=== PATIENT | female | born 1955 | race Caucasian/White ===

== ENCOUNTER 2024-01-20 10:23 | Emergency (ER) | payer OTHER, SELFPAY ==
[2024-01-20 10:33] VITALS: BP 134/87
[2024-01-20 11:02] VITALS: BMI 35.4
[2024-01-20] MEDS: DILAUDID 0.5 MG IV (11:21)
[2024-01-20 11:48] LABS: ALT (SGPT) 25 U/L (0-35); AST (SGOT) 23 U/L (14-36); Albumin 3.3 g/dl (3.5-5.0); Alkaline Phosphatase 74 U/L (38-126); Blood Urea Nitrogen 18 mg/dl (7-17); Calcium 8.4 mg/dl (8.4-10.2); Carbon Dioxide 24 mmol/L (22-30); Chloride 109 mmol/L (98-107); Estimated Creatinine Clearance 102 ml/min; Glucose 90 mg/dl (70-99); Potassium 3.3 mmol/L (3.5-5.1); Sodium 135 mmol/L (135-145); Total Bilirubin 0.5 mg/dl (0.2-1.3); Total Protein 5.7 g/dl (6.3-8.2); eGFR > 60.00
[2024-01-20 11:55] LABS: % Basophils 0.3 % (0-2); % Eosinophils 0.8 % (0-6); % Immature Granulocytes 0.6 % (0-0.5); % Lymphocytes 25.6 % (20.5-51.1); % Monocytes 6.7 % (1.7-9.3); Absolute Basophils 0.1 10^3/uL (0-0.2); Absolute Eosinophils 0.2 10^3/uL (0-0.7); Absolute Immature Granulocytes 0.2 10^3/uL (0-0.05); Absolute Lymphocytes 5.9 10^3/uL (1.2-3.4); Absolute Monocytes 1.6 10^3/uL (0.1-0.6); Absolute Neutrophils 15.2 10^3/uL (1.4-6.5); Hematocrit 38.4 % (37.0-47.0); Hemoglobin 13.2 g/dL (12.0-16.0); Mean Corp Hgb Conc. 34.4 g/dL (33.0-37.0); Mean Corpuscular Hgb 30.1 pg (27.0-31.0); Mean Corpuscular Volume 87.5 fL (81.0-99.0); Mean Platelet Volume 8.9 fL (7.4-10.4); Nucleated Red Blood Cells % 0 %; Platelet Count 337 10^3/uL (130-400); Red Blood Cell Count 4.39 10^6/uL (4.20-5.40); Red Cell Dist. Width 15.1 % (11.5-14.5); White Blood Cell Count 23.1 10^3/uL (4.8-10.8)
[2024-01-20 14:03] VITALS: BP 154/75
--- NOTE | 2024-01-20 14:22 | ED.GENMED ---
History of Present Illness
General
Chief Complaint: Abdominal Symptoms
Source: patient
Time Seen by Provider: 01/20/24 11:06
Travel History
Have you had any contact with someone who has COVID-19?: No
Do you have any symptoms of coronavirus? Fever > 100 degrees, chills, cough, shortness of breath, sore throat, loss of taste or smell, muscle aches, or headache?: Yes
Symptoms:: cough
History of Present Illness
History of Present Illness:
69-year-old female presents complaining of sudden onset right-sided abdominal pain. She has been coughing for 2 weeks. Today she coughed while standing in the bathroom and developed sharp sudden pain to the right abdomen. She also notes swelling.
She is not anticoagulated. No other complaints at this time
Past History
Past History
ED Past Medical History: HTN, Hypercholesterolemia and Other (Sciatic back pain)
ED Past Surgical History: Gynecological
Social History
Tobacco: Smoker
Alcohol: Occasional
Drug: None
Personal:
Living: with family
Employment: Employed
Phy Exam
Physical Exam
Physical Exam:
General: Well-appearing female no acute respiratory distress
HEENT: Normocephalic atraumatic
Heart: Regular rate and rhythm no murmurs
Lungs: Clear no wheeze or Rales
Abdomen firm tender guarding noted to the right upper and lower abdomen. Left side of the abdomen is soft. There is swelling noted to the right abdomen. No ecchymosis hourly
Extremities: No
Course
Orders/Labs/Results
Orders:
Orders
01/20/24 10:39
Chest [CR Chest - 2 Views ] Urgent
Comment:
Reason For Exam: cough, pain right lower abd after coughing fit
01/20/24 11:16
CT Abd/pelvis W Iv Cont Urgent
Comment:
Reason For Exam: RUQ pain after coughing
HYDROmorphone [Dilaudid] 0.5 mg IV NOW STA
01/20/24 11:32
Complete Blood Count/With Diff Urgent
Comprehensive Metabolic Panel Urgent
Abnormal Lab Results
01/20/24
11:32
WBC 23.1 H 10^3/uL
(4.8-10.8)
RDW 15.1 H %
(11.5-14.5)
Abs Immat Gran (auto) 0.2 H 10^3/uL
(0-0.05)
Absolute Neuts (auto) 15.2 H 10^3/uL
(1.4-6.5)
Absolute Lymphs (auto) 5.9 H 10^3/uL
(1.2-3.4)
Absolute Monos (auto) 1.6 H 10^3/uL
(0.1-0.6)
Immature Gran % 0.6 H %
(0-0.5)
Potassium 3.3 L mmol/L
(3.5-5.1)
Chloride 109 H mmol/L
(98-107)
BUN 18 H mg/dl
(7-17)
Total Protein 5.7 L g/dl
(6.3-8.2)
Albumin 3.3 L g/dl
(3.5-5.0)
01/20/24 11:32
01/20/24 11:32
Vital Signs
Initial and Last Documented VS:
Initial Vital Signs
Temp Pulse Resp BP Pulse Ox
99.3 F 87 20 134/87 97
01/20/24 10:33 01/20/24 10:33 01/20/24 10:33 01/20/24 10:33 01/20/24 10:33
Last Documented Vital Signs
Temp Pulse Resp BP Pulse Ox
99.3 F 65 18 154/75 98
01/20/24 10:33 01/20/24 14:03 01/20/24 14:03 01/20/24 14:03 01/20/24 14:03
MDM/Problems Addressed
Differential Diagnosis Includes:
Right abdominal pain started suddenly after coughing. Exam concerning secondary rigidness and swelling. Question possible hematoma versus hernia perforation.
Will check labs and CT
*Critical Care Note
Total Time (30-74mins, 75-104mins- exclusive of procedures): Not Applicable
Update Note
Update Note:
CT of abdomen reviewed and demonstrates hematoma within the rectus abdominal muscle on the right side. Hemoglobin is stable vital signs are stable white blood cell count is 23,000 likely reactive to the pain. Patient reexamined is looking more
comfortable. No indication for any further intervention. Recommended ice and pain control. Stable for discharge
ED Attending Note
-
Portions of this chart may have been created with voice recognition software.� Occasional wrong word or��sound alike� substitutions may have occurred due to the inherent limitations of voice recognition software.
Discharge Plan
Departure
Patient Disposition: Home (Routine Discharge)
Date of Disposition: 01/20/24
Time of Disposition: 14:28
Patient with high blood pressure during this ER visit?: No
Discharge Problem:
Rectus sheath hematoma
Instructions: Muscle and Bone Pain (DC)
Prescriptions:
New
hydrocodone-acetaminophen 5-325 mg tablet
1 tab PO Q8H PRN (Reason: Pain) Qty: 10 0RF
No Action
atorvastatin 40 MG tablet
40 mg PO DAILY
lisinopril 10 MG tablet
10 mg PO DAILY
alprazolam 0.25 MG tablet
0.25 mg PO Q8HPRN PRN (Reason: anxiety)
metronidazole 500 MG tablet
500 mg PO TID Qty: 29 0RF
levofloxacin 500 MG tablet
500 mg PO DAILY Qty: 9 0RF
Referrals:
Tom Willard MD [Family Provider] -
Activity Restrictions/Additional Instructions:
Continue with ice. Use pain medicine as needed for severe pain. Return if needed. Avoid heavy lifting or twisting. Follow up with family doctor.
Interventions
Interventions:
*Risk Screen - Suicide Last Done: 01/20/24 11:03
*General Assessment Last Done: 01/20/24 11:04
*Neglect/Abuse Screening Last Done: 01/20/24 11:03
ED- Fall Risk Assessment Last Done: 01/20/24 11:03
*ED COVID-19 Vaccine History Last Done: 01/20/24 11:03
LM-Vabusa-Xspveaalgq Assessment Last Done: 01/20/24 11:06
Discharge Date and Time
Print Language: MOSOTHO
== END 2024-01-20 15:28 | disposition home or self-care (01) ==
LOC: EMR 10:23
PROVIDERS: Physician Assistant; EMERGENCY PHYSICIAN Emergency Medicine; FAMILY PHYSICIAN Family Medicine
DX: S30.1XXA Contusion of abdominal wall, initial encounter (principal); X58.XXXA Exposure to other specified factors, initial encounter; I10 Essential (primary) hypertension; E78.00 Pure hypercholesterolemia, unspecified; F17.200 Nicotine dependence, unspecified, uncomplicated
CPT/HCPCS: 99284; 96374; 71046; 74177; 80053; 85025; Q9967

== ENCOUNTER 2024-07-28 21:57 | Emergency (ER) | payer OTHER, SELFPAY ==
[2024-07-28 21:58] VITALS: BP 173/91
--- NOTE | 2024-07-28 23:31 | EDRN ---
specialist for the chronic neck pain that flares. Pt states that she has had a Medrol dose pack. Pt states that today she has had bilateral arm weakness. Pt has nausea with any movement. Pt is to start physical therapy this week. Pt states that
tonight the nausea and the dizziness has increased. Pt has taken Advil and Tylenol with no relief.
[2024-07-28 23:36] VITALS: BMI 32.5
[2024-07-29 00:01] LABS: % Basophils 0.5 % (0-2); % Eosinophils 0.8 % (0-6); % Immature Granulocytes 0.5 % (0-0.5); % Lymphocytes 18.4 % (20.5-51.1); % Monocytes 6.5 % (1.7-9.3); % Neutrophils 73.3 % (42.2-75.2); Absolute Basophils 0.1 10^3/uL (0-0.2); Absolute Eosinophils 0.2 10^3/uL (0-0.7); Absolute Immature Granulocytes 0.1 10^3/uL (0-0.05); Absolute Lymphocytes 3.5 10^3/uL (1.2-3.4); Absolute Monocytes 1.2 10^3/uL (0.1-0.6); Hematocrit 41.8 % (37.0-47.0); Hemoglobin 14.6 g/dL (12.0-16.0); Mean Corp Hgb Conc. 34.9 g/dL (33.0-37.0); Mean Corpuscular Hgb 30.5 pg (27.0-31.0); Mean Corpuscular Volume 87.4 fL (81.0-99.0); Mean Platelet Volume 9.3 fL (7.4-10.4); Nucleated Red Blood Cells % 0 %; Platelet Count 288 10^3/uL (130-400); Red Blood Cell Count 4.78 10^6/uL (4.20-5.40); Red Cell Dist. Width 14.6 % (11.5-14.5); White Blood Cell Count 19.1 10^3/uL (4.8-10.8)
[2024-07-29] MEDS: NSS 1000 IV (00:05)
[2024-07-29] MEDS: PROTONIX IV 40 MG IV (00:08)
[2024-07-29] MEDS: REGLAN 10 MG IV (00:11)
[2024-07-29] MEDS: TORADOL 15 MG IV (00:13)
[2024-07-29] MEDS: ANTIVERT 25 MG PO (00:15)
[2024-07-29 00:19] LABS: ALT (SGPT) 28 U/L (0-35); AST (SGOT) 29 U/L (14-36); Albumin 4.4 g/dl (3.5-5.0); Alkaline Phosphatase 81 U/L (38-126); Blood Urea Nitrogen 20 mg/dl (7-17); Calcium 9.9 mg/dl (8.4-10.2); Carbon Dioxide 29 mmol/L (22-30); Chloride 99 mmol/L (98-107); Estimated Creatinine Clearance 73 ml/min; Glucose 124 mg/dl (70-99); Lipase 70 U/L (23-300); Potassium 3.9 mmol/L (3.5-5.1); Sodium 138 mmol/L (135-145); Total Bilirubin 0.4 mg/dl (0.2-1.3); eGFR > 60.00
[2024-07-29 00:24] LABS: Troponin I < 0.012 ng/ml
[2024-07-29 00:38] VITALS: BP 164/84
--- NOTE | 2024-07-29 00:41 | ED.GENMED ---
History of Present Illness
General
Chief Complaint: Dizziness
Source: patient and spouse
Exam Limitations: none
Time Seen by Provider: 07/28/24 23:12
Nursing documentation reviewed up to this point in time: agreed with
History of Present Illness
History of Present Illness:
This is a 69-year-old woman with history of hypertension, hyperlipidemia, history of cervical as well as lumbar DJD. She notes several week history of posterior neck pain which she attributes to exacerbation of her cervical disc disease and has had
similar sporadic exacerbations in the past. Has been following with her PCP and was treated with a Medrol Dosepak which she finished a week ago as well as a short course of muscle relaxer. She has been taking Advil as well as Tylenol on a fairly
regular basis over the past few weeks. Posterior neck pain is worse with movement of her neck, occasionally radiates down bilateral arms but not associated with chest pain nor weakness nor numbness.
She has a scheduled appointment with Dr. Balbuena later this week. She has been evaluated by him in the past for previous neck and low back issues.
This afternoon however she developed dizziness, somewhat abrupt onset that is worse with change in position and accompanied with nausea as well as some upper abdominal discomfort. She denies fever nor chills, no headache, no nasal congestion or
sore throat. Dizziness improves if she is lying or sitting still, worsens if she changes position. She does note similar episodes of dizziness in the past and oftentimes accompanied with exacerbations of her neck pain. She has been evaluated by
physical therapy in the past for vertigo/dizziness evaluations and treatments.
Although intermittent nausea she has had no episodes of vomiting. Her appetite has been good.
She has had no diarrhea, no constipation, she denies black nor tarry stools. No chest pain or palpitations, no cough no shortness of breath. No dysuria and urgency and or hematuria.
Past History
Past History
ED Past Medical History: HTN, Hypercholesterolemia and Other (Sciatic back pain; cervical disc disease, vertigo)
ED Past Surgical History: , Gynecological and Orthopedic (Left knee replacement)
Social History
Tobacco: Smoker (1/2 pack/day)
Alcohol: Occasional
Drug: None
Personal:
Living: with family
Employment: Retired
Family History
Family History: Other (Noncontributory)
Phy Exam
Physical Exam
Physical Exam:
GENERAL: 69-year-old woman appears her stated age, awake and alert, pleasant, appears in no acute distress. Lying Semi-Cheek's on stretcher, resistant to reposition. is accompanying.
EYE: pupils equal and reactive. Extraocular muscles intact. Mild bilateral lateral gaze nystagmus. Negative test of skew. Mildly positive head impulse test. Anicteric
NECK: Supple, no midline bony tenderness, mild bilateral paracervical muscle spasm, no meningismus, no significant adenopathy.
ENT: posterior pharynx is clear, oral mucosa is moist. TM clear b/l, nares patent.
CARDIAC: Regular rate and rhythm. no murmur.
LUNGS: Clear breath sounds bilaterally, no acute respiratory distress, no wheezes/rales/rhonchi
ABDOMEN: Soft, nondistended, without focal tenderness, no r/g, no cvat. normoactive BS.
NEUROLOGICAL: Alert and oriented x3, no focal neuro deficits. Motor strength is 5/5 bilaterally. Gross sensation is intact.
SKIN: Warm and dry, normal color, skin intact. No rash.
MUSCULOSKELETAL: No C/C/E. peripheral pulses are full and equal b/l. No palpable tenderness.
PSYCH: Normal and appropriate interaction.
Course
Orders/Labs/Results
Orders:
Orders
07/28/24 22:02
EKG [Electrocardiogram (*1)] Urgent
Reason for Study: Fatigue / Weakness
EKG- Treatment ONCE
07/28/24 23:37
0.9% Sodium Chloride 1000 ml [Nss] 1,000 ml IV BOLUS
Meclizine [Antivert] 25 mg PO NOW STA
Metoclopramide [Reglan] 10 mg IV NOW STA
Pantoprazole [Protonix IV] 40 mg IV NOW STA
07/28/24 23:39
Ketorolac [Toradol] 15 mg IV NOW STA
07/28/24 23:51
Complete Blood Count/With Diff Urgent
Comprehensive Metabolic Panel Urgent
Lipase Urgent
Troponin I Urgent
Abnormal Lab Results
07/28/24
23:51
WBC 19.1 H 10^3/uL
(4.8-10.8)
RDW 14.6 H %
(11.5-14.5)
Abs Immat Gran (auto) 0.1 H 10^3/uL
(0-0.05)
Absolute Neuts (auto) 14.0 H 10^3/uL
(1.4-6.5)
Absolute Lymphs (auto) 3.5 H 10^3/uL
(1.2-3.4)
Absolute Monos (auto) 1.2 H 10^3/uL
(0.1-0.6)
Lymphocytes % 18.4 L %
(20.5-51.1)
BUN 20 H mg/dl
(7-17)
Glucose 124 H mg/dl
(70-99)
07/28/24 23:51
07/28/24 23:51
Vital Signs
Initial and Last Documented VS:
Initial Vital Signs
Temp Pulse Resp BP Pulse Ox
98 F 77 18 173/91 99
07/28/24 21:58 07/28/24 21:58 07/28/24 21:58 07/28/24 21:58 07/28/24 21:58
Last Documented Vital Signs
Temp Pulse Resp BP Pulse Ox
98 F 76 11 164/84 95
07/28/24 21:58 07/29/24 00:30 07/29/24 00:30 07/29/24 00:38 07/29/24 00:30
MDM/Problems Addressed
Differential Diagnosis Includes:
Patient presents with acute positional dizziness, concern for peripheral dizziness versus central dizziness. She has had similar episodes in the past, treated successfully with physical therapy.
She also notes several week history of posterior neck pain which appears musculoskeletal in nature, similar exacerbations of cervical disc disease in the past as well. She has been taking a fair amount of NSAIDs and recently treated with a Medrol
Dosepak and with complaints of epigastric discomfort must consider an element of gastritis, peptic ulcer disease. Other consideration is ACS, occult upper GI bleed, symptomatic anemia.
Triage EKG is reassuring, no evidence of ACS and unchanged from previous 2019.
Will check labs.
Will initiate IV fluids, IV Protonix for potential gastritis, IV Reglan for nausea and will trial an oral dose of meclizine.
Chronic conditions affecting care: HTN and Other (Hyperlipidemia, smoker, cervical disc disease)
*Pulse Oximetry
Patient hypoxic: no
*EKG
Interpreted by ED Provider?: Yes
Comparison EKG: no changes (Unchanged from previous November 2019)
Rate: normal
Rhythm: sinus
[place]: normal axis
Interval: normal interval
QRS Pattern: normal QRS and poor R-wave progression
Ischemia: no ischemia
*Insurance Counselor Interpretation
Rate: normal
Interpretation: normal
Rhythm: sinus
*Critical Care Note
Total Time (30-74mins, 75-104mins- exclusive of procedures): Not Applicable
Update Note
Update Note:
07/29/2024 0108 AM
Patient feeling markedly improved, dizziness has resolved, posterior neck pain has resolved as well. No further abdominal discomfort nor nausea.
Labs remarkable for moderately elevated white blood cell count of 19. Similar elevations noted on previous labs.
Chemistries are unremarkable as is troponin.
Systolic hypertension markedly improved.
Discharge to home with a short course of pantoprazole for GI protection/potential gastritis as well as a prescription for meclizine for as needed dizziness.
Patient has an appointment scheduled with Dr. Balbuena in 2 days time.
ED Attending Note
-
Portions of this chart may have been created with voice recognition software.� Occasional wrong word or��sound alike� substitutions may have occurred due to the inherent limitations of voice recognition software.
Discharge Plan
Departure
Patient Disposition: Home (Routine Discharge)
Date of Disposition: 07/29/24
Time of Disposition: 01:10
Patient with high blood pressure during this ER visit?: No
Condition: Good
Discharge Problem:
Acute positional vertigo, exacerbation of cervical disk disease
Instructions: Vertigo (a Type of Dizziness) (DC), Neck Pain ED
Prescriptions:
New
meclizine 25 mg tablet
25 mg PO QID PRN (Reason: dizziness, nausea) Qty: 20 0RF
pantoprazole [Protonix] 40 mg tablet,delayed release (DR/EC)
40 mg PO DAILY Qty: 30 0RF
No Action
atorvastatin 40 MG tablet
40 mg PO DAILY
lisinopril 10 MG tablet
10 mg PO DAILY
alprazolam 0.25 MG tablet
0.25 mg PO Q8HPRN PRN (Reason: anxiety)
metronidazole 500 MG tablet
500 mg PO TID Qty: 29 0RF
levofloxacin 500 MG tablet
500 mg PO DAILY Qty: 9 0RF
hydrocodone-acetaminophen 5-325 mg tablet
1 tab PO Q8H PRN (Reason: Pain) Qty: 10 0RF
Referrals:
Simone Balbuena MD [Active] - Keep scheduled appt
Susu Saravia DO [Family Provider] - Call in 1-3 days for appt
Interventions
Interventions:
*Risk Screen - Suicide Last Done: 07/28/24 21:58
*General Assessment Last Done: 07/28/24 21:58
*Neglect/Abuse Screening Last Done: 07/28/24 21:58
ED- Fall Risk Assessment Last Done: 07/28/24 23:27
*ED COVID-19 Vaccine History Last Done: 07/28/24 23:27
ED- Neurological Assessment Last Done: 07/28/24 23:27
ED Swallowing Screen Last Done: 07/28/24 23:27
Discharge Date and Time
Print Language: ITALIAN
[2024-07-29 02:20] VITALS: BP 151/85
== END 2024-07-29 02:20 | disposition home or self-care (01) ==
LOC: EMR 21:57
PROVIDERS: EMERGENCY PHYSICIAN Emergency Medicine; FAMILY PHYSICIAN Family Medicine
DX: M50.90 Cervical disc disorder, unspecified, unspecified cervical region (principal); H81.10 Benign paroxysmal vertigo, unspecified ear; I10 Essential (primary) hypertension; E78.00 Pure hypercholesterolemia, unspecified; F17.210 Nicotine dependence, cigarettes, uncomplicated
CPT/HCPCS: 99284; 96374; 96375 ×2; 96361; 80053; 83690; 84484; 85025; 93005; 99285

== ENCOUNTER → 2024-08-01 07:03 | Outpatient (REF) | payer OTHER, SELFPAY | LOC: MRI 3T 07:03 | PROVIDERS: ATTENDING PHYSICIAN Physician Assistant; FAMILY PHYSICIAN Family Medicine | DX: M54.12 Radiculopathy, cervical region (principal) | CPT/HCPCS: 72141 ==